=== PATIENT | female | born 1990 | race Caucasian/White ===

== ENCOUNTER → 2017-07-08 | Outpatient (CLI) | payer OTHER ==
[~2017-07-08] MED LIST: CLC100 PO; DIFFERIN; IBUP600T44 PO; erythromycin
== END | disposition home or self-care (01) ==
LOC: C.PAPS 13:50
PROVIDERS: ATTEND Obstetrics & Gynecology
DX: Z12.4 Encounter for screening for malignant neoplasm of cervix (principal)